=== PATIENT | female | born 1935 | race Caucasian/White ===

== ENCOUNTER → 2018-06-01 | Day surgery (SDC) | payer MEDICARE, OTHER ==
[~2018-06-01] MED LIST: ACETAMINOPHEN 1,000 MG/100 ML BTL IV ONE; BUPIVACAINE 0.5% W/EPI MPF 30 ML VIAL IVP ONE; BUPIVACAINE LIPOSOME/PF 133MG/10ML VIAL IV ONE; CEFAZOLIN 2 Gram 2 GM/50 ML BAG IVPB ONE; EPHEDRINE SULFATE 50 MG/ML ML IV ONE; FENTANYL PF 100MCG/2ML VIAL IV ONE; LIDOCAINE 2% MDV (20MG/ML) 20ML VIAL IV ONE; METHYLPREDNISOLONE 40MG/VIAL IM ONE; MIDAZOLAM HCL 2MG/2ML VIAL IV ONE; PROPOFOL 10 MG/ML VIAL IV ONE; SEVOFLURANE 250 ML INH ONE
[2018-06-01 10:06] LABS: BASO % 0.7 % (0-6); EOS % 1.3 % (0-6); GRAN % 56.2 % (47-80); HEMATOCRIT 43.5 % (35.0-47.0); HEMOGLOBIN 13.9 gm/dl (11.6-16.0); LYMPH % 32.2 % (16-45); MEAN CELL VOLUME 91.4 fl (81-97); MEAN CORPUSCULAR HEMOGLOBIN 29.2 pg (27-33); MEAN PLATELET VOLUME 10.8 fl (7.4-10.4); MONO % 9.6 % (0-9); PLATELET COUNT 262 K/uL (130-400); RED BLOOD COUNT 4.76 M/uL (3.80-5.40); RED CELL DISTRIBUTION WIDTH 14.7 % (11.5-14.5); WHITE BLOOD COUNT W/O DIFF 6.7 K/uL (4.2-12.2)
[2018-06-01 10:20] LABS: BLOOD UREA NITROGEN 17 mg/dL (8-23); CREATININE 0.8 mg/dL (0.5-0.9); EST GLOMERULAR FILTRATION RATE > 60 mL/min; GLUCOSE,RANDOM 117 mg/dL (74-109)
--- NOTE | 2018-06-03 22:01 | Operative Note ---
DATE OF SURGERY: 06/01/2018. PREOPERATIVE DIAGNOSIS: 1. RIGHT KNEE ARTHROSIS. 2. MENISCUS TEAR. POSTOPERATIVE DIAGNOSIS: 1. RIGHT KNEE ARTHROSIS. 2. MENISCUS TEAR. PROCEDURE: 1. DIAGNOSTIC ARTHROSCOPY. 2. ARTHROSCOPIC PARTIAL POSTERIOR HORN MEDIAL MENISCECTOMY AND PARTIAL POSTERIOR HORN LATERAL MENISCECTOMY. 3. ARTHROSCOPIC DEBRIDEMENT AND CHONDROPLASTY OF THE MEDIAL FEMORAL CONDYLE. 4. ARTHROSCOPIC CHONDROPLASTY OF THE PATELLA. SURGEON: DARIEL GRIJALVA M.D. ANESTHESIA: LMA, ZAC CONNER CRNA. COMPLICATIONS: NONE. BLOOD LOSS: MINIMAL. OPERATIVE FINDINGS: Complex tear of the entire posterior horn of the medial meniscus and degenerative tear and significant fraying of the posterior and middle horns of the lateral meniscus. 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 INDICATIONS FOR OPERATION: This is an 82-year-old female who is active and healthy, who has had some persistent pain in dysfunction in her knee. She has significant narrowing in the PA flexion weightbearing x-rays and diagnosed with arthrosis and mechanical symptoms consistent with meniscus tear possibly as well and she is scheduled for arthroscopic surgery. I explained all the risks and benefits to her in detail for her diagnosis and procedures including but not limited to infection, nerve injury, vessel injury, persistent pain, stiffness, numbness and tingling in her knee, the fact that she has arthrosis of the knee and that this procedure would not cure this condition and she could require further procedures, infection, and blood clot and all of her questions were answered. Rehab and course were outlined and she agreed to proceed. PROCEDURE: The patient brought to O.R. and placed in the supine position. LMA anesthesia was induced and her right lower extremity and knee were prepped and draped in the usual sterile fashion. The right knee was prepped again with ChloraPrep after it was draped. Intraoperative time-out was performed. Preoperatively, the exam revealed minimal effusion, knee full range of motion, negative Kush's and negative Demario's and anterior and posterior drawer. Next, knee injected with 0.5% Marcaine with Epinephrine. Standard superior lateral inflow port was established. Inferior medial and lateral ports were established and diagnostic arthroscopy performed. Suprapatellar pouch had some synovitis, otherwise normal. The medial gutter was normal. The medial compartment revealed significant complex tear with radial and horizontal fissure components involving the entire posterior horn of the medial meniscus. We used a combination of basket biter and shaver and smoothed and trimmed about 60 to 70% of the width of the meniscus off to a smooth stable surface, contouring with the middle horn when the anterior horn where intact. The cartilage here had some grade 2 chondromalacia and we debrided that with a shaver to a smooth stable surface. The intracondylar notch was normal. The ACL and PCL were intact. The lateral compartment revealed some degenerative tearing of the entire middle and posterior horns of the lateral meniscus. We used a combination again of basket biter and shaver and trimmed about 20 to 30% of the meniscus edge again to a smooth stable surface. The cartilage on the tibia was intact. The lateral gutter was normal. The patellofemoral compartment had some grade 1 to 2 chondromalacia on the patella and we debrided that with a shaver to a smooth stable surface. The trochlea was normal. This completed our procedures. The scope and equipment were removed. The wound was covered with Xeroform gauze. The knee was bolused with 0.5% Marcaine with Epinephrine, 80 mg DepoMedrol, and Exparel. Sterile dressing applied. MERCEDEZ wrap. The patient tolerated the procedures well. No intraoperative complications. All sponge, needle, and blade counts correct. Recovery Room stable, neurovascularly intact. She will be discharged as an outpatient and follow-up in one week. JOB NUMBER: [id number] MTDD
== END | disposition home or self-care (01) ==
LOC: SUR 09:49
PROVIDERS: ATTEND Orthopaedic Surgery
DX: S83.231A Complex tear of medial meniscus, current injury, right knee, initial encounter (principal); M22.41 Chondromalacia patellae, right knee; M94.261 Chondromalacia, right knee
CPT/HCPCS: 80048; 85025; C9290; J1030